=== PATIENT | female | born 1950 | race Caucasian/White ===

== ENCOUNTER 2018-03-18 07:12 | Inpatient (IN) | payer OTHER, BC ==
[2018-03-18 07:58] LABS: ADD MAN DIFF? NO
[2018-03-18 07:59] LABS: WHITE BLOOD COUNT 5.5 10^3/ul (4.8-10.8)
[2018-03-18 07:59] LABS: BASOPHIL # 0.1 10^3/ul (0.0-0.1); BASOPHILS % 1.3 % (0.0-2.0); EOSINOPHILS # 0.2 10^3/ul (0.0-0.5); EOSINOPHILS % 2.9 % (0.0-7.0); HEMATOCRIT 45.4 % (37.0-47.0); HEMOGLOBIN 15.5 g/dl (12.0-16.0); LYMPHOCYTES # 2.4 10^3/ul (0.8-2.9); LYMPHOCYTES % 44.1 % (15.0-51.0); MEAN CORPUSCULAR HEMOGLOBIN 30.6 pg (29.0-33.0); MEAN CORPUSCULAR HGB CONC 34.1 g/dl (32.0-37.0); MEAN CORPUSCULAR VOLUME 89.5 fl (82.0-101.0); MEAN PLATELET VOLUME 10.8 fl (7.4-10.4); MONOCYTE # 0.6 10^3/ul (0.3-0.9); MONOCYTES % 11.2 % (0.0-11.0); NEUTROPHIL # 2.2 10^3/ul (1.6-7.5); NEUTROPHILS % 40.3 % (39.0-77.0); PLATELET COUNT 218 10^3/UL (140-415); RED BLOOD COUNT 5.07 10^6/ul (4.20-5.40); RED CELL DISTRIBUTION WIDTH 11.9 % (11.5-14.5)
[2018-03-18 08:11] LABS: ADD UMIC NO; UR ASCORBIC ACID NEGATIVE (NEGATIVE); UR BILIRUBIN (Dip) NEGATIVE (NEGATIVE); UR BLOOD (Dip) NEGATIVE (NEGATIVE); UR CLARITY CLEAR (CLEAR); UR COLOR YELLOW (YELLOW); UR GLUCOSE (Dip) NEGATIVE (NEGATIVE); UR KETONES (Dip) NEGATIVE (NEGATIVE); UR LEUKOCYTE ESTERASE (Dip) NEGATIVE Leu/ul (NEGATIVE); UR NITRITE (Dip) NEGATIVE (NEGATIVE); UR SPECIFIC GRAVITY (Dip) 1.013 (1.003-1.030); UR TOTAL PROTEIN (Dip) NEGATIVE (NEGATIVE); UR UROBILINOGEN (Dip) NEGATIVE (NEGATIVE)
[2018-03-18 08:18] LABS: INR 0.98; PROTIME 13.1 Sec (11.9-14.9)
[2018-03-18 08:18] LABS: HEMOGLOBIN A1C 5.6 % (0-5.9)
[2018-03-18 08:19] LABS: PARTIAL THROMBOPLASTIN TIME 31.2 Sec (23.0-35.0)
[2018-03-18 08:25] LABS: ANION GAP 12 (5-13); BLOOD UREA NITROGEN 21 mg/dl (7-20); CARBON DIOXIDE 30 mmol/L (21-31); CHLORIDE 100 mmol/L (97-110); CHOL/HDL RATIO 3.5 RATIO; CHOLESTEROL 190 mg/dl (100-200); CREATINE KINASE 76 IU/L (23-200); CREATININE 0.76 mg/dl (0.44-1.00); Estimated GFR > 60 mL/min (>60); GLUCOSE 96 mg/dl (70-220); HDL CHOLESTEROL 54 mg/dl (33-92); LDL CHOLESTEROL,CALCULATED 111 mg/dl; POTASSIUM 4.2 mmol/L (3.5-5.1); SODIUM 142 mmol/L (135-144); TRIGLYCERIDES 127 mg/dl (0-149)
[2018-03-18 08:27] LABS: ETHANOL < 10.0 mg/dl (0-0)
[2018-03-18 08:35] LABS: CK INDEX 1.7; CK-MB 1.27 ng/ml (0.0-2.4); TROPONIN-I < 0.012 ng/ml (0.000-0.120)
[2018-03-18 08:37] LABS: AMPHETAMINE/METHAMPHETAMINE Negative (NEGATIVE); BARBITURATES Negative (NEGATIVE); BENZODIAZEPINES Negative (NEGATIVE); CANNABINOIDS Negative (NEGATIVE); COCAINE Negative (NEGATIVE)
[2018-03-18 08:44] LABS: OPIATES Positive (NEGATIVE)
[2018-03-18] MEDS: SOD CHLORIDE 0.9% 100 ML (08:47)
[2018-03-18] MEDS: IOHEXOL 100 ML (08:51)
[2018-03-18] MEDS: ASPIRIN 325 MG TAB PO (08:55)
[2018-03-18] MEDS ORDERED: ONDANSETRON 4 MG INJ IV ×2 (09:00→11:30)
[2018-03-18] MEDS ORDERED: ACETAMINOPHEN 325 MG TAB PO (09:00)
[2018-03-18] MEDS ORDERED: clonAZEPAM 0.5 MG TAB PO (11:00)
[2018-03-18] MEDS ORDERED: NACL 0.9% 3 ML SYG IV (11:30)
[2018-03-18] MEDS: ASPIRIN 81 MG TAB PO (11:30)
[2018-03-18] MEDS: HYDROCODONE/APAP (10/325) TAB PO (14:51)
[2018-03-18] MEDS: LORAZEPAM 1 MG TAB PO (17:02)
[2018-03-18] MEDS ORDERED: NON-FORMULARY/PATIENT OWN MED (Lovastatin* (Altoprev*) 40 MG) PO (21:00)
[2018-03-18] MEDS: LORAZEPAM 2 MG INJ IV (21:46)
[2018-03-18] MEDS: ATORVASTATIN 10 MG TAB PO (22:43)
[2018-03-18] MEDS: DOXYCYCLINE 100 MG TAB PO (22:43)
[2018-03-19] MEDS: PANTOPRAZOLE (EC) 40 MG TAB PO (06:40)
[2018-03-19 06:50] LABS: ADD MAN DIFF? NO
[2018-03-19 06:53] LABS: WHITE BLOOD COUNT 4.6 10^3/ul (4.8-10.8)
[2018-03-19 06:53] LABS: BASOPHIL # 0.1 10^3/ul (0.0-0.1); BASOPHILS % 1.3 % (0.0-2.0); EOSINOPHILS # 0.2 10^3/ul (0.0-0.5); EOSINOPHILS % 3.5 % (0.0-7.0); HEMATOCRIT 43.2 % (37.0-47.0); HEMOGLOBIN 14.7 g/dl (12.0-16.0); MEAN CORPUSCULAR HEMOGLOBIN 30.5 pg (29.0-33.0); MEAN CORPUSCULAR VOLUME 89.6 fl (82.0-101.0); MEAN PLATELET VOLUME 10.9 fl (7.4-10.4); MONOCYTE # 0.5 10^3/ul (0.3-0.9); MONOCYTES % 10.3 % (0.0-11.0); NEUTROPHIL # 1.9 10^3/ul (1.6-7.5); NEUTROPHILS % 40.7 % (39.0-77.0); PLATELET COUNT 195 10^3/UL (140-415); RED BLOOD COUNT 4.82 10^6/ul (4.20-5.40); RED CELL DISTRIBUTION WIDTH 11.9 % (11.5-14.5)
[2018-03-19 07:22] LABS: ALANINE AMINOTRANSFERASE 22 IU/L (13-69); ALBUMIN/GLOBULIN RATIO 1.33; ALKALINE PHOSPHATASE 92 IU/L (42-121); ANION GAP 13 (5-13); ASPARTATE AMINO TRANSFERASE 22 IU/L (15-46); BILIRUBIN,INDIRECT 0.2 mg/dl (0-1.1); BILIRUBIN,TOTAL 0.2 mg/dl (0.2-1.3); BLOOD UREA NITROGEN 19 mg/dl (7-20); CALCIUM 9.6 mg/dl (8.4-10.2); CARBON DIOXIDE 29 mmol/L (21-31); CHLORIDE 99 mmol/L (97-110); CHOL/HDL RATIO 3.3 RATIO; CHOLESTEROL 161 mg/dl (100-200); CREATININE 0.69 mg/dl (0.44-1.00); Estimated GFR > 60 mL/min (>60); GLUCOSE 97 mg/dl (70-220); HDL CHOLESTEROL 48 mg/dl (33-92); LDL CHOLESTEROL,CALCULATED 85 mg/dl; MAGNESIUM 1.9 mg/dl (1.7-2.5); PHOSPHORUS 5.1 mg/dl (2.5-4.9); POTASSIUM 4.2 mmol/L (3.5-5.1); SODIUM 141 mmol/L (135-144); TRIGLYCERIDES 139 mg/dl (0-149)
[2018-03-19 07:23] LABS: HEMOGLOBIN A1C 5.6 % (0-5.9)
[2018-03-19] MEDS: CITALOPRAM 20 MG TAB PO (08:55)
[2018-03-19] MEDS: DOXYCYCLINE 100 MG TAB PO ×2 (08:56→20:13)
[2018-03-19] MEDS: AMLODIPINE 5 MG TAB PO (08:57)
[2018-03-19] MEDS: ASPIRIN 81 MG TAB PO (08:58)
[2018-03-19] MEDS: HYDROCHLOROTHIAZIDE 25 MG TAB PO (08:58)
[2018-03-19] MEDS ORDERED: METHYLPREDNISOLONE (MEDROL) DOSE PACK PO ×2 (16:00)
[2018-03-19] MEDS: METHYLPREDNISOLONE 4 MG TAB PO (17:51)
[2018-03-19] MEDS: ATORVASTATIN 10 MG TAB PO (20:16)
[2018-03-19] MEDS: NORTRIPTYLINE 10 MG CAP PO (20:17)
[2018-03-19] MEDS: HYDROCODONE/APAP (10/325) TAB PO (23:44)
[2018-03-20] MEDS: PANTOPRAZOLE (EC) 40 MG TAB PO (06:36)
[2018-03-20] MEDS: METHYLPREDNISOLONE 4 MG TAB PO ×4 (06:36→21:13)
[2018-03-20] MEDS: DOXYCYCLINE 100 MG TAB PO ×2 (08:34→21:12)
[2018-03-20] MEDS: HYDROCHLOROTHIAZIDE 25 MG TAB PO (08:34)
[2018-03-20] MEDS: CITALOPRAM 20 MG TAB PO (08:35)
[2018-03-20] MEDS: AMLODIPINE 5 MG TAB PO (08:35)
[2018-03-20] MEDS: ASPIRIN 81 MG TAB PO (08:35)
[2018-03-20] MEDS: HYDROCODONE/APAP (10/325) TAB PO (08:39)
[2018-03-20] MEDS: ATORVASTATIN 10 MG TAB PO (21:12)
[2018-03-20] MEDS: NORTRIPTYLINE 10 MG CAP PO (21:14)
[2018-03-21] MEDS: METHYLPREDNISOLONE 4 MG TAB PO ×2 (06:35→12:09)
[2018-03-21] MEDS: PANTOPRAZOLE (EC) 40 MG TAB PO (06:35)
[2018-03-21] MEDS: CITALOPRAM 20 MG TAB PO (08:38)
[2018-03-21] MEDS: AMLODIPINE 5 MG TAB PO (08:39)
[2018-03-21] MEDS: HYDROCHLOROTHIAZIDE 25 MG TAB PO (08:39)
[2018-03-21] MEDS: DOXYCYCLINE 100 MG TAB PO (08:39)
[2018-03-21] MEDS: ASPIRIN 81 MG TAB PO (08:39)
[2018-03-21] MEDS ORDERED: DOCUSATE SODIUM 100 MG CAP PO (10:00)
[2018-03-21] MEDS: POLYETHYLENE GLYCOL 17 GM PACKET NGT (10:29)
[2018-03-21] MEDS ORDERED: METHYLPREDNISOLONE 4 MG TAB PO (21:00)
== END 2018-03-21 14:45 | disposition home or self-care (01) | DRG 103 ==
LOC: E/R 07:12 → TEL 08:45
DX: G43.409 Hemiplegic migraine, not intractable, without status migrainosus (principal); Z72.0 Tobacco use; I10 Essential (primary) hypertension; L71.9 Rosacea, unspecified; F41.8 Other specified anxiety disorders
CPT/HCPCS: 36415; 70450; 70496; 70498; 70553; 71045; 80048; 80053; 80061; 80307; 81003; 82550; 82553; 82962; 83036; 83735; 84100; 84443; 84484; 85025; 85610; 85730; 92610; 93005; 95819; 97116; 97161; 97167; 99217; 99285-25; G0378